=== PATIENT | female | born 1955 | race Hispanic/Latino ===

== ENCOUNTER → 2021-10-14 | Outpatient (CLI) | payer MEDICARE, BC | END | disposition home or self-care (01) | LOC: RAH 13:47 | PROVIDERS: ATTEND Internal Medicine Cardiovascular Disease | DX: I08.3 Combined rheumatic disorders of mitral, aortic and tricuspid valves (principal); R55 Syncope and collapse; I31.3 Pericardial effusion (noninflammatory) | CPT/HCPCS: 78803; 93306; 93356; A9538 ==

== ENCOUNTER 2023-05-26 07:51 | Observation (INO) | payer MEDICARE, BC ==
[2023-05-21 11:52] LABS: BASOPHILS % (AUTO) 2.3 % (0.0-5.0); EOSINOPHILS % (AUTO) 5.1 % (0.0-8.0); HEMATOCRIT 38.4 % (36-48); LYMPHOCYTES % (AUTO) 25.1 % (21.0-51.0); MEAN CORPUSCULAR HEMOGLOBIN 33.7 pg (27.0-33.0); MEAN CORPUSCULAR HGB CONC 33.1 g/dL (32.0-36.0); MEAN CORPUSCULAR VOLUME 101.9 fL (79-99); MONOCYTES % (AUTO) 15.5 % (3.0-13.0); NEUTROPHILS % (AUTO) 51.7 % (40.0-77.0); PLATELET COUNT (AUTO) 145 K/uL (130-400); RED BLOOD CELL COUNT(AUTO) 3.77 MIL/uL (4.00-5.50); RED CELL DISTRIBUTION WIDTH 13.7 % (11.0-15.5); WHITE BLOOD COUNT (AUTO) 3.9 K/uL (4.8-10.8)
[2023-05-21 12:04] LABS: CREATININE 1.1 mg/dL (0.5-1.5); POTASSIUM 4.3 mmol/L (3.5-5.1)
[2023-05-21 12:05] LABS: INR 0.97 (0.85-1.15); PROTHROMBIN TIME 10.6 SEC (9.6-11.6)
[2023-05-21 12:07] LABS: PARTIAL THROMBOPLASTIN TIME 32.6 SEC (26.3-35.5)
[2023-05-21 14:35] VITALS: BP 119/59
[~2023-05-26] VITALS: Ht 165.1 cm; Wt 62.0 kg
[2023-05-26] VITALS (28 sets, daily range): BP systolic 88–139; BP diastolic 51–71
[~2023-05-26 07:51] MED LIST: ACYC400T20 PO; APIX5TAB PO; FURO20TA4 PO; LENA15CA PO; METO-391 PO
[2023-05-26] MEDS ORDERED: CEFAZOLIN SODIUM 2 GM VIAL ONE (08:12)
[2023-05-26] MEDS ORDERED: LACTATED RINGERS 1000ML 1,000 ML IV ONE (08:12)
[2023-05-26] MEDS ORDERED: TRANEXAMIC ACID 1000MG/10ML ONE ×2 (11:01→11:20)
[2023-05-26] MEDS ORDERED: LIDOCAINE PF 100MG/5ML (2%) SYRINGE 5ML ONE (11:44)
[2023-05-26] MEDS ORDERED: ONDANSETRON 4MG INJ ONE (11:44)
[2023-05-26] MEDS ORDERED: MIDAZOLAM HCL 1 MG/ML 2ML VIAL ONE (11:44)
[2023-05-26] MEDS ORDERED: FENTANYL CITRATE PF 50 MCG/1 ML 2ML VIAL ONE ×3 (11:44→15:59)
[2023-05-26] MEDS ORDERED: DEXAMETHASONE SOD PHOSPHATE 10MG/ML 1ML VIAL ONE (11:44)
[2023-05-26] MEDS ORDERED: ROCURONIUM 10MG/1ML SYR 10 MG/ML ML ONE (11:45)
[2023-05-26] MEDS ORDERED: ROPIVACAINE 0.5% 5MG/ML 30ML IJ ONE (11:50)
[2023-05-26] MEDS ORDERED: EPHEDRINE SULFATE 50 MG/ML AMPULE ONE (12:07)
[2023-05-26] MEDS ORDERED: CEFAZOLIN SODIUM 2 GM VIAL IVPB ONE (12:45)
[2023-05-26] MEDS ORDERED: SUGAMMADEX SODIUM 200 MG/2 ML VIAL IV ONE (13:41)
[2023-05-26] MEDS ORDERED: GLYCOPYRROLATE 1 MG/5 ML SYRINGE ONE (13:45)
[2023-05-26] MEDS ORDERED: MORPHINE 4 MG SYG IVP PRN (15:30)
[2023-05-26] MEDS ORDERED: POTASSIUM CHLORIDE 20MEQ/100ML 100 ML IV PRN (15:30)
[2023-05-26] MEDS ORDERED: KCL 20 MEQ ERTAB PO PRN (15:30)
[2023-05-26] MEDS ORDERED: OXYCODONE HCL 5 MG TAB PO PRN (15:30)
[2023-05-26] MEDS ORDERED: POTASSIUM CHLORIDE 10% ELIXIR 20 MEQ/15 ML UDCUP PO PRN (15:30)
[2023-05-26] MEDS ORDERED: ACETAMINOPHEN 1,000 MG/100 ML VIAL IV ONE (15:49)
[2023-05-26] MEDS: ACETAMINOPHEN 1,000 MG/100 ML VIAL IV SCH ×2 (16:05→22:49)
[2023-05-26] MEDS: ONDANSETRON 4MG INJ IVP PRN ×3 (17:04→18:53)
[2023-05-26] MEDS: 0.9%NACL 1000ML 1,000 ML IV SCH (17:39)
[2023-05-26] MEDS: FAMOTIDINE 20MG TAB PO SCH (20:40)
[2023-05-26] MEDS: CEFAZOLIN SODIUM 1 GM VIAL IVPB SCH (20:41)
[2023-05-26] MEDS ORDERED: ACYCLOVIR PO SCH (21:00)
[2023-05-26] MEDS ORDERED: FUROSEMIDE 20 MG TABLET PO SCH (21:00)
[2023-05-26] MEDS: METOPROLOL SUCCINATE 50 MG TAB.SR.24H PO SCH (21:30)
[2023-05-26] MEDS: ACYCLOVIR 200 MG CAPSULE PO SCH (22:49)
[2023-05-27 03:43] VITALS: BP 97/51
[2023-05-27] MEDS: ACETAMINOPHEN 1,000 MG/100 ML VIAL IV SCH (04:02)
[2023-05-27] MEDS: CEFAZOLIN SODIUM 1 GM VIAL IVPB SCH (04:03)
[2023-05-27 04:57] LABS: HEMATOCRIT 25.9 % (36-48); MEAN CORPUSCULAR HEMOGLOBIN 33.5 pg (27.0-33.0); MEAN CORPUSCULAR HGB CONC 32.4 g/dL (32.0-36.0); MEAN CORPUSCULAR VOLUME 103.2 fL (79-99); RED BLOOD CELL COUNT(AUTO) 2.51 MIL/uL (4.00-5.50); RED CELL DISTRIBUTION WIDTH 13.9 % (11.0-15.5); WHITE BLOOD COUNT (AUTO) 5.4 K/uL (4.8-10.8)
[2023-05-27 05:06] LABS: CREATININE 1.3 mg/dL (0.5-1.5); POTASSIUM 4.4 mmol/L (3.5-5.1)
[2023-05-27] MEDS: APIXABAN 5 MG TABLET PO SCH ×3 (07:00→21:04)
[2023-05-27 08:00] VITALS: BP 117/65
[2023-05-27] MEDS: FUROSEMIDE 20 MG TABLET PO SCH (08:41)
[2023-05-27] MEDS: POLYETHYLENE GLYCOL 3350 17 GM POWD.PACK PO SCH (08:41)
[2023-05-27] MEDS: 0.9%NACL 1000ML 1,000 ML IV SCH (08:42)
[2023-05-27] MEDS: LENALIDOMIDE PO SCH ×2 (08:43→21:04)
[2023-05-27] MEDS ORDERED: METOPROLOL SUCCINATE 50 MG TAB.SR.24H PO SCH (09:00)
[2023-05-27] MEDS: ACYCLOVIR 200 MG CAPSULE PO SCH ×2 (09:34→21:04)
[2023-05-27 12:01] VITALS: BP 100/49
[2023-05-27] MEDS ORDERED: DIAZEPAM 2 MG TAB PO PRN (12:30)
[2023-05-27] MEDS: ACETAMINOPHEN 500 MG TABLET PO PRN (13:07)
[2023-05-27] MEDS ORDERED: DIAZ2TAB3 PO (13:18)
[2023-05-27 16:00] VITALS: BP 111/54
[2023-05-27 16:54] LABS: BASOPHILS % (AUTO) 0.6 % (0.0-5.0); EOSINOPHILS % (AUTO) 0.7 % (0.0-8.0); HEMATOCRIT 25.8 % (36-48); MEAN CORPUSCULAR HEMOGLOBIN 33.7 pg (27.0-33.0); MEAN CORPUSCULAR HGB CONC 32.6 g/dL (32.0-36.0); MEAN CORPUSCULAR VOLUME 103.6 fL (79-99); MONOCYTES % (AUTO) 12.8 % (3.0-13.0); NEUTROPHILS % (AUTO) 77.3 % (40.0-77.0); PLATELET COUNT (AUTO) 101 K/uL (130-400); RED BLOOD CELL COUNT(AUTO) 2.49 MIL/uL (4.00-5.50); RED CELL DISTRIBUTION WIDTH 14.1 % (11.0-15.5); WHITE BLOOD COUNT (AUTO) 5.4 K/uL (4.8-10.8)
[2023-05-27 19:40] VITALS: BP 106/58
[2023-05-27] MEDS: METOPROLOL SUCCINATE 50 MG TAB.SR.24H PO SCH (21:04)
[2023-05-27] MEDS: FAMOTIDINE 20MG TAB PO SCH (21:04)
[2023-05-27 23:15] VITALS: BP 122/65
[2023-05-28] MEDS: ACETAMINOPHEN 500 MG TABLET PO PRN ×3 (02:05→15:13)
[2023-05-28 03:40] VITALS: BP 108/67
[2023-05-28 08:00] VITALS: BP 108/65
[2023-05-28] MEDS: POLYETHYLENE GLYCOL 3350 17 GM POWD.PACK PO SCH (09:00)
[2023-05-28] MEDS: APIXABAN 5 MG TABLET PO SCH (09:26)
[2023-05-28] MEDS: ACYCLOVIR 200 MG CAPSULE PO SCH (09:26)
[2023-05-28] MEDS: FUROSEMIDE 20 MG TABLET PO SCH (09:27)
[2023-05-28] MEDS ORDERED: PHARMACY COMMUNICATION MISC SCH (10:30)
[2023-05-28] MEDS ORDERED: 0.9%NACL 1000ML 1,000 ML IV ONE (11:00)
[2023-05-28] MEDS ORDERED: FERROUS GLUCONATE 324MG TABLET.DR PO SCH ×2 (11:30→21:00)
[2023-05-28 12:17] VITALS: BP 96/43
[2023-05-28] MEDS ORDERED: FERR324T17 PO (13:49)
[2023-05-28 14:47] VITALS: BP 103/68
[2023-05-29] MEDS ORDERED: BISACODYL 10 MG SUPP.RECT RC PRN (15:30)
== END 2023-05-28 15:30 | disposition home or self-care (01) ==
LOC: DAH 07:51 → DAHIP 07:52 → DAH 07:52 → 4AH 17:17
PROVIDERS: ADMIT Orthopaedic Surgery; ATTEND Orthopaedic Surgery
DX: M16.12 Unilateral primary osteoarthritis, left hip (principal); Z20.822 Contact with and (suspected) exposure to COVID-19; I48.91 Unspecified atrial fibrillation; D64.9 Anemia, unspecified; Z79.899 Other long term (current) drug therapy; Z98.890 Other specified postprocedural states
CPT/HCPCS: 80048 ×2; 85025 ×2; 85610; 85730; 87426; 36415 ×2; 87641; 27130; 96365; 96375; 96367; 64450; 73503; 97039 ×3; 96366; 96368; 85027; 97161; 97116 ×3; 97530; A6260; A4649 ×5; C1776 ×5; G0378 ×45; A4663; A4606; J7120; J3010 ×3; J0690 ×4; J3490 ×4; J1100; J2001; J2250; J2405 ×3; J2795; G0168; A4930; A6212; A5120; A4215; A4223; A4222; A4221; A4600